=== PATIENT | female | born 1985 | race Caucasian/White ===

== ENCOUNTER → 2023-12-02 09:43 | Outpatient (REF) | payer BC, SELFPAY | LOC: RAD 09:43 | PROVIDERS: ATTENDING PHYSICIAN Physician Assistant | DX: R13.10 Dysphagia, unspecified (principal) | CPT/HCPCS: 74246 ==

== ENCOUNTER → 2023-12-08 06:25 | Day surgery (SDC) | payer BC, SELFPAY | LOC: GI 06:25 | PROVIDERS: ATTENDING PHYSICIAN Internal Medicine | DX: K64.4 Residual hemorrhoidal skin tags (principal); F45.8 Other somatoform disorders; R93.3 Abnormal findings on diagnostic imaging of other parts of digestive tract; Z83.710 Family history of adenomatous and serrated polyps | CPT/HCPCS: 45378; 43239; 88305 ==